=== PATIENT | male | born 2005 | race Caucasian/White ===

== ENCOUNTER 2023-05-11 15:03 | Emergency (ER) | payer BC ==
[~2023-05-11] VITALS: Ht 182.9 cm; Wt 77.7 kg
[~2023-05-11 15:03] MED LIST: AMOXICILLI400 MG/51 PO
[2023-05-11 15:07] VITALS: TEMP 98.6
[2023-05-11 15:56] LABS: HEMATOCRIT 46.8 % (36.0-47.0); HEMOGLOBIN 15.7 g/dl (12.5-16.1); MEAN CELL VOLUME 89 fl (80.0-95.0); MEAN CORPUSCULAR HEMOGLOBIN 30 pg (26-32); MEAN CORPUSCULAR HGB CONC 34 g/dl (33.0-37.0); MEAN PLATELET VOLUME 12.2 fl (7.4-10.4); PLATELET COUNT 176 K/mm3 (130-400); RED BLOOD COUNT 5.26 M/mm3 (4.20-5.60); REDCELL DISTRIBUTION WIDTH-CV 12.7 % (11.5-14.5)
[2023-05-11 16:16] LABS: MONOSCREEN POSITIVE
[2023-05-11 16:18] LABS: ALBUMIN 3.7 gm/dL (3.5-5.0); BILIRUBIN,TOTAL 0.5 mg/dL (0.2-1.2); CALCIUM 8.7 mg/dL (8.4-10.2); CREATININE, serum 1.29 mg/dL (0.72-1.25); TOTAL PROTEIN 7.2 gm/dL (6.2-8.1)
[2023-05-11 16:45] LABS: BAND 7 % (0-10); LYMPHOCYTE 52 % (20.0-51.0); NEUTROPHILS 32 % (42.0-75.2); PLATELET ESTIMATE NORMAL (NORMAL)
[2023-05-11] MEDS ORDERED: PREDNISONE20 MG PO (16:53)
[2023-05-11 17:29] VITALS: BP 123/63; PULSE 71
== END 2023-05-11 17:36 | disposition home or self-care (01) ==
LOC: COL.ER 15:03
PROVIDERS: Personal Emergency Response Attendant
DX: B27.90 Infectious mononucleosis, unspecified without complication (principal); E86.0 Dehydration
CPT/HCPCS: J0696; J1100; J7030; Q9967